=== PATIENT | female | born 1990 | race Two or more races ===

== ENCOUNTER 2017-05-01 13:25 | Emergency (ER) | payer MEDICAID, OTHER ==
[~2017-05-01] VITALS: Ht 149.9 cm; Wt 45.4 kg
[2017-05-01 13:32] VITALS: BP 130/96
== END 2017-05-01 16:01 | disposition left against medical advice (07) ==
LOC: ER 13:31
DX: L02.416 Cutaneous abscess of left lower limb (principal); Z53.21 Procedure and treatment not carried out due to patient leaving prior to being seen by health care provider